=== PATIENT | male | born 1980 | race Two or more races ===

== ENCOUNTER 2016-05-24 12:02 | Emergency (ER) | payer MEDICAID, OTHER ==
[2016-05-24 12:23] VITALS: BP 169/107; PULSE 105; RESP 16; TEMP 98.8; O2SAT 100
[2016-05-24] MEDS ORDERED: TDAP Vaccine 0.5 mL Syr IM ONE (12:32)
--- NOTE | 2016-05-24 13:16 | ED PDOC ---
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 no LOC, h /a, dizziness, blurred vision, neck pain, n/v numbness, weakness distally. Past Medical History Reviewed: Historical Data, Nursing Documentation, Vital Signs Vital Signs: Last Vital Signs Temp 98.8 F 05/24/16 12:18 Pulse 105 H 05/24/16 12:18 Resp 16 05/24/16 12:18 BP 169/107 H 05/24/16 12:18 Pulse Ox 100 05/24/16 12:18 - Medical History Other PMH: pemphigous vulgaris - Family History Family History: States: No Known Family Hx - Social History Current smoker - smoking cessation education provided: No Alcohol: None Drugs: Denies - Immunization History Hx Tetanus Toxoid Vaccination: No - Home Medications Home Medications: Ambulatory Orders Medication Instructions Recorded Doxycycline Monohydrate [Mondoxyne 1 tab PO BID 05/24/16 ] - Allergies Allergies/Adverse Reactions: Allergies Allergy/AdvReac Type Severity Reaction Status Date / Time No Known Allergies Allergy Verified 02/24/14 18:06 Review of Systems ROS Statement: Except As Marked, All Systems Reviewed And Found Negative Skin: Positive for: Lesions Physical Exam - Reviewed Nursing Documentation Reviewed: Yes Vital Signs Reviewed: Yes - Physical Exam Appears: Positive for: Well, Non-toxic, No Acute Distress Head Exam: Negative for: ATRAUMATIC (abrasion to frontal scalp. no depression or deformity.) Skin: Positive for: Normal Color, Warm, DRY Eye Exam: Positive for: EOMI, PERRL Neck: Positive for: Normal, Painless ROM Cardiovascular/Chest: Positive for: Regular Rate, Rhythm Respiratory: Positive for: CNT, Normal Breath Sounds Gastrointestinal/Abdominal: Positive for: Normal Exam, Bowel Sounds, Soft. Negative for: Tenderness Extremity: Positive for: Normal ROM. 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 Negative for: Motor/Sensory Deficits - ECG O2 Sat by Pulse Oximetry: 100 Medical Decision Making Medical Decision Making: no risk factors for significant intracranial injury. will update tetanus, clean wound. Disposition - Clinical Impression Clinical Impression: Scalp abrasion - Patient ED Disposition Is Patient to be Admitted: No - Disposition Referrals: [facility] [Outside] Disposition: Routine/Home Disposition Time: 13:17 Condition: GOOD Instructions: Head Injury (ED), Abrasion (ED), Hypertension (ED)
== END 2016-05-24 13:02 | disposition home or self-care (01) ==
LOC: H.ER 12:02
DX: S00.01XA Abrasion of scalp, initial encounter (principal); W22.8XXA Striking against or struck by other objects, initial encounter; Y92.89 Other specified places as the place of occurrence of the external cause